=== PATIENT | female | born 1950 | race Caucasian/White ===

== ENCOUNTER 2018-02-27 00:59 | Emergency (ER) | payer OTHER ==
[~2018-02-27] VITALS: Ht 160 cm; Wt 69.6 kg
[2018-02-27 01:09] VITALS: Ht 160 cm; Wt 69.6 kg
[2018-02-27 01:57] LABS: BASOPHIL % 0.6 % (0-2); PLATELET COUNT 256 x10^3mcL (130-400)
[2018-02-27 02:03] LABS: CALCIUM 9.1 mg/dL (8.5-10.1); CARBON DIOXIDE 26.1 mmol/L (21-32); CREATININE SERUM 1.6 mg/dL (0.6-1.0)
[2018-02-27 02:04] LABS: POTASSIUM SERUM 5.4 mmol/L (3.5-5.1)
[2018-02-27 02:08] LABS: ALBUMIN 3.8 g/dL (3.4-5.0); BILIRUBIN TOTAL 0.38 mg/dL (0.20-1.00); PHOSPHOROUS 3.3 mg/dL (2.5-4.9); TOTAL PROTEIN, SERUM 7.9 g/dL (6.4-8.2); URIC ACID 6.5 mg/dL (2.6-6.0)
[2018-02-27 03:04] VITALS: BP 154/74
== END 2018-02-27 03:04 | disposition home or self-care (01) ==
LOC: ED 00:59
PROVIDERS: Emergency Medicine
DX: R53.1 Weakness (principal); R42 Dizziness and giddiness; I10 Essential (primary) hypertension; E11.9 Type 2 diabetes mellitus without complications
CPT/HCPCS: 36415; 83880; Q0092